=== PATIENT | female | born 1970 | race Caucasian/White ===

== ENCOUNTER → 2016-11-15 | Outpatient (CLI) | payer OTHER ==
[~2016-11-15] MED LIST: ACET-1256 PO; ASCO10003 PO; ASPI-391 PO; CALC500C3 PO; CALC500T83 PO; CHOL100010 PO; CHOL1CAP57 PO; CORACAP6 PO; ENOX30IN4 SQ; ESCI10TA17 PO; ESCI1TAB10 PO; HYDR-5688 PO; IMD/2 PO; METAMUCIL PO; MISCCAP80 PO; MULT-506 PO; RIZA10TA18 PO
== END | disposition home or self-care (01) ==
LOC: C.MAMM 12:33
PROVIDERS: ATTEND Nurse Practitioner
DX: C50.919 Malignant neoplasm of unspecified site of unspecified female breast (principal); M85.80 Other specified disorders of bone density and structure, unspecified site; Z90.722 Acquired absence of ovaries, bilateral; Z90.710 Acquired absence of both cervix and uterus; Z78.0 Asymptomatic menopausal state

== ENCOUNTER → 2017-05-01 | Outpatient (CLI) | payer OTHER ==
[~2017-05-01] MED LIST changes: +OPTIRAY 320 IV PRN
--- NOTE | 2017-05-01 12:56 | DIAGNOSTIC IMAGING REPORT ---
CHEST CT WITH CONTRAST CT DOSE: 467.24 mGy.cm HISTORY: Colon carcinoma COLON CA TECHNIQUE: Multiaxial CT images of the chest were performed following the intravenous administration of contrast. COMPARISON: 07/05/2016 FINDINGS: The lungs are clear. The mediastinal vascular structures are within normal limits. No mediastinal or hilar lymphadenopathy. No pleural effusion or pneumothorax. Limited views of the upper abdomen demonstrate a small cyst stable hypodense nodule left hepatic lobe. Components of fatty infiltration of liver are present. IMPRESSION: No significant abnormality identified within the chest. No change from the prior study Electronically signed by: Best Sarah M.D. 05/01/2017 12:55 PM Dictated Date/Time: 05/01/2017 12:50 PM
--- NOTE | 2017-05-01 13:03 | DIAGNOSTIC IMAGING REPORT ---
ABDOMEN AND PELVIS CT WITH IV AND ORAL CONTRAST CT DOSE: HISTORY: Colon carcinoma COLON CA TECHNIQUE: Multiaxial CT images of the abdomen and pelvis were performed following the use of intravenous and oral contrast. COMPARISON STUDY: 06/24/2016 FINDINGS: Lung bases remain clear. Stable fatty infiltration of liver. Stable hypodensity/cyst left hepatic lobe. Gallbladder is negative for distention. Kidneys enhance uniformly. Findings of polysplenia, intestinal malrotation, as well as an increased fecal load at this time within the sigmoid appears similar compared to the prior study. No significant adenopathy is present. No lytic or blastic process of the osseous structures. IMPRESSION: 1. Negative study of the abdomen and pelvis. 2. Incidental findings as discussed above. 3. Increased fecal load within the sigmoid 4. No evidence of metastatic disease Electronically signed by: Best Sarah M.D. 05/01/2017 1:02 PM Dictated Date/Time: 05/01/2017 12:56 PM
== END | disposition home or self-care (01) ==
LOC: C.CTS 11:37
PROVIDERS: ATTEND Internal Medicine Hematology & Oncology
DX: C18.4 Malignant neoplasm of transverse colon (principal)

== ENCOUNTER → 2017-05-06 | Outpatient (CLI) | payer OTHER ==
[~2017-05-06] MED LIST changes: +GADAVIST IV PRN; -OPTIRAY 320 IV PRN
--- NOTE | 2017-05-07 07:42 | MAMMOGRAPHY REPORT ---
BREAST MRI OF BOTH BREASTS : 05/06/2017 CLINICAL HISTORY: 46-year-old woman with a history of breast cancer status post bilateral mastectomy and implant reconstruction. She presents to assess implant integrity and continued surveillance stat us post breast cancer. COMPARISON: Comparison is made to exams dated: 05/09/2011 mammogram, 04/25/2010 mammogram - [facility], 04/21/2009, 04/08/2008, 04/08/2008, and 11/08/2015 breast MRI - [facility] enter. TECHNIQUE: Using a 1.5 Annie magnet and dedicated breast coil, multisequence axial images were obtain ed through the breasts. After uneventful IV administration of 8 mL of Gadavist, dynamic multiphase c ontrast-enhanced axial images, and sagittal postcontrast were obtained. Temporal subtraction axial i mages and 3-D MIP images are provided. Everything was then reviewed on a 3-D workstation, [employer]. Ad ditional multisequence axial and sagittal sequences were performed to assess implant integrity. FINDINGS: There is evidence of bilateral mastectomy and silicone implant reconstruction. The implant s are intact bilaterally without evidence of intracapsular or extracapsular rupture. There is suscep tibility artifact along the left chest wall, adjacent to the implant, likely secondary to remote surg eries. There is no focal skin thickening, abnormal enhancement or enhancing mass within the remainin g subcutaneous tissue surrounding the implants. No suspicious axillary or internal mammary lymphaden opathy is identified. 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 IMPRESSION: ACR BI-RADS CATEGORY 2: BENIGN Stable MRI including intact bilateral silicone implants. No MRI evidence of malignancy or suspicious lymphadenopathy. The patient will receive written notification of the results. Bella Camacho M.D. ay/:05/06/2017 21:33:56 Naphthalene Operator: data administrator, [facility] letter sent: Normal 1/2 BI-RADS Code: ACR BI-RADS Category 2: Benign
== END | disposition home or self-care (01) ==
LOC: C.MRI 12:00
PROVIDERS: ATTEND Internal Medicine Hematology & Oncology
DX: Z85.3 Personal history of malignant neoplasm of breast (principal)

== ENCOUNTER → 2017-06-18 | Outpatient (CLI) | payer OTHER ==
[~2017-06-18] MED LIST changes: -ACET-1256 PO; -ASCO10003 PO; -CALC500C3 PO; -CHOL1CAP57 PO; -CORACAP6 PO; -ENOX30IN4 SQ; -ESCI1TAB10 PO; -GADAVIST IV PRN; -METAMUCIL PO; -MISCCAP80 PO
[2017-06-18 17:42] LABS: BASO % 0.2 %; BASO ABS # 0.01 K/uL (0-0.2); COMPLETE YES; HEMATOCRIT 38.9 % (37-47); LYMPH % 42.1 %; LYMPH ABS # 1.89 K/uL (1.2-3.4); MEAN CELL VOLUME 87.6 fL (80-100); MEAN CORPUSCULAR HEMOGLOBIN 28.2 pg (25-34); MEAN CORPUSCULAR HGB CONC 32.1 g/dl (32-36); MEAN PLATELET VOLUME 9.6 fL (7.4-10.4); MONO % 7.1 %; NEUT % 48.6 %; PLATELET COUNT 203 K/uL (130-400); RED BLOOD COUNT 4.44 M/uL (4.2-5.4); WHITE BLOOD COUNT 4.49 K/uL (4.8-10.8)
[2017-06-18 17:58] LABS: ALT/SGPT 40 U/L (12-78); AST/SGOT 38 U/L (15-37); BLOOD UREA NITROGEN 14 mg/dl (7-18); BUN/CREATININE RATIO 18.1 (10-20); CALCIUM 9.4 mg/dl (8.5-10.1); CARBON DIOXIDE 31 mmol/L (21-32); CHLORIDE 102 mmol/L (98-107); CREATININE 0.78 mg/dl (0.60-1.20); GLUCOSE 95 mg/dl (70-99); POTASSIUM 3.7 mmol/L (3.5-5.1); SODIUM 137 mmol/L (136-145)
[2017-06-18 18:00] LABS: ALB/GLOB RATIO 1.3 (0.9-2); ALKALINE PHOSPHATASE 75 U/L (45-117)
== END | disposition home or self-care (01) ==
LOC: C.LABBFT 15:17
PROVIDERS: ATTEND Internal Medicine Hematology & Oncology
DX: C18.4 Malignant neoplasm of transverse colon (principal)

== ENCOUNTER → 2017-06-28 | Day surgery (SDC) | payer OTHER ==
[2017-06-13 12:49] VITALS: Ht 162.6 cm; Wt 52.3 kg
[~2017-06-28] VITALS: Ht 162.6 cm; Wt 52.3 kg
[~2017-06-28] MED LIST changes: +LIDOCAINE HCL 2% 2 ML VIAL (20MG/ML) ONE; +PROPOFOL IV EMULSION 10 MG/ML 20 ML VIAL IV ONE
[2017-06-28 13:24] VITALS: TEMP 36.6
--- NOTE | 2017-06-28 13:52 | Endo History and Physical ---
History & Physical Date of Service: Jun 28, 2017. Chief Complaint: Hx of colon cancer Referring Physician: Mackenzie History of Present Illness For flex sig Past Surgical History Hx Cardiac Surgery: No Hx Internal Defibrillator: No Hx Pacemaker: No Hx Abdominal Surgery: Yes (HYSTER) Hx of Implantable Prosthesis: No Hx Post-Op Nausea and Vomiting: No Hx Cancer Surgery: Yes (COLON RESECTION WITH APPY AND FINISHED HYSTER, BLT MASTECTOMY WITH IMPLANTS) Hx Thoracic Surgery: No Hx Orthopedic: No Hx Urinary Tract Surgery: No Family History Colon CA Social History Smoking Status: Never Smoker Hx Substance Use: No Hx Alcohol Use: Yes (OCCASIONAL WINE) Allergies Coded Allergies: Morphine (Verified Allergy, Unknown, NAUSEA HOT FLASHES, 06/28/17) Current Medications Reported Home Medications Medications Dose Route/Sig Max Daily Dose Days Date Category Excedrin Extra Strength (Rrbcihu-Ijdezmwweenjo-Lknuyzkf) 1 Tab Tab 1 Tab PO UD PRN 06/13/17 Reported Calcium 500 Mg Tab 1,000 Mg PO QAM 06/13/17 Reported Lexapro (Escitalopram Oxalate) 10 Mg Tab 10 Mg PO QAM 06/13/17 Reported Imodium (Loperamide HCl) 2 Mg Cap 2 Mg PO UD PRN 08/09/16 Reported Maxalt (Rizatriptan Benzoate) 10 Mg Tab 10 Mg PO UD PRN 03/24/13 Reported Multivitamin (Multivitamins) Tab 1 Tab PO QAM 07/09/08 Reported Vital Signs Weight (Kilograms): 52.27 Height (Feet): 5 Height (Inches): 4 Date Time Temp Pulse Resp B/P (MAP) Pulse Ox O2 Delivery O2 Flow Rate FiO2 06/28/17 13:24 36.6 74 18 101/60 (74) 98 Room Air Physical Exam General Appearance: WD/WN Respiratory/Chest: Respiratory effort: no dyspnea Abdomen: Bowel Sounds: pertinent finding (low transverse scar) Assessment and Plan hx colon cancer for flex sig
--- NOTE | 2017-06-28 14:10 | Discharge Instructions ---
Endoscopy Patient Instructions Date / Procedure(s) Performed Jun 28, 2017. Colonoscopy Allergy Information Coded Allergies: Morphine (Verified Allergy, Unknown, NAUSEA HOT FLASHES, 06/28/17) Discharge Date / Findings Jun 28, 2017. anastomotic erosion Medication Instructions Restart Stopped Medication(s): resume meds Reported Home Medications Medications Dose Route/Sig Max Daily Dose Days Date Category Excedrin Extra Strength (Ygcqkxw-Daebajxjxpwhw-Cqsbkzdn) 1 Tab Tab 1 Tab PO UD PRN 06/13/17 Reported Calcium 500 Mg Tab 1,000 Mg PO QAM 06/13/17 Reported Lexapro (Escitalopram Oxalate) 10 Mg Tab 10 Mg PO QAM 06/13/17 Reported Imodium (Loperamide HCl) 2 Mg Cap 2 Mg PO UD PRN 08/09/16 Reported Maxalt (Rizatriptan Benzoate) 10 Mg Tab 10 Mg PO UD PRN 03/24/13 Reported Multivitamin (Multivitamins) Tab 1 Tab PO QAM 07/09/08 Reported Provider Instructions Activity Restrictions - No exercising or heavy lifting for 24 hours. - Do not drink alcohol the day of the procedure. - Do not drive a car or operate machinery until the day after the procedure. - Do not make any important decisions or sign important papers in 24 hours after the procedure. Following Day: - Return to full activity which may include returning to work/school. Diet Start your diet with liquids and light foods (jello, soup, juice, toast). Then eat your usual diet if not nauseated. Treatment For Common After Affects For mild abdominal pain, bloating, or excessive gas: - Rest - Eat lightly - Lie on right side Follow-Up Information Follow-up with Mackenzie as scheduled Anesthesia Information What You Should Know You have had a procedure that required some medicine to reduce anxiety and discomfort. This treatment is called moderate sedation. After receiving the treatment, you may be sleepy, but you will be able to breathe on your own. The effects of the treatment may last for several hours. Follow these instructions along with Activity/Diet recommendations noted above: * Do NOT do anything where dizziness or clumsiness would be dangerous. * Rest quietly at home today, then you can be up and about tomorrow. * Have a responsible person stay with you the rest of today. * You may have had an I.V. today. If so, you may take the dressing off later today. Recommendations Call your doctor if: * Trouble breathing * Continuous vomiting for more than 24 hours * Temperature above 101 degrees * Severe abdominal pain or bloating * Pain not relieved by pain medicine ordered * There is increased drainage or redness from any incision * A large amount of rectal bleeding greater than 2-3 tablespoons. (If you had a polyp/s removed or have hemorrhoids, a small amount of blood - from the rectum is to be expected.) * You have any unanswered questions or concerns. IN THE EVENT OF A SERIOUS EMERGENCY, GO TO THE NEAREST EMERGENCY ROOM Your discharge instructions were prepared by provider Travis Simmons. Patient Instructions Signature Page Sofi Case Patient (or Guardian) Signature/Date: I have read and understand the instructions given to me by my caregivers. Caregiver/RN/Doctor Signature/Date: The above-named patient and/or guardian has received patient instructions on this date. + Original Patient Signature Page (only) stays with chart. Please make copy for patient.
--- NOTE | 2017-06-28 14:17 | GI REPORT ---
Procedure Date: 06/28/2017 1:31 PM Procedure: Colonoscopy Indications: Personal history of malignant neoplasm of the colon Medicines: Propofol total dose 170 mg IV, Lidocaine 40 mg IV Complications: No immediate complications. Estimated Blood Loss: Estimated blood loss: none. Procedure: Pre-Anesthesia Assessment: - Prior to the procedure, a History and Physical was performed, and patient medications, allergies and sensitivities were reviewed. The patient's tolerance of previous anesthesia was reviewed. - The risks and benefits of the procedure and the sedation options and risks were discussed with the patient. All questions were answered and informed consent was obtained. After I obtained informed consent, the scope was passed under direct vision. Throughout the procedure, the patient's blood pressure, pulse, and oxygen saturations were monitored continuously. The scope was introduced through the anus and advanced to the terminal ileum. The colonoscopy was performed without difficulty. The patient tolerated the procedure well. The quality of the bowel preparation was excellent. Findings: There was evidence of a prior end-to-side ileo-colonic anastomosis at 15 cm in the recto-sigmoid colon. This was patent and was characterized by erosion. The anastomosis was traversed. The colon (entire examined portion) appeared normal. Impression: - Patent end-to-side ileo-colonic anastomosis, characterized by erosion. - The entire examined colon is normal. - No specimens collected. Recommendation: - Discharge patient to home (ambulatory). - Continue present medications. - Repeat colonoscopy in 3 years for surveillance. - Return to primary care physician SIERRAN. Travis Simmons M.D. Travis Simmons MD 06/28/2017 2:16:30 PM This report has been signed electronically. Note Initiated On: 06/28/2017 1:31 PM I attest to the content of the Intraoperative Record and orders documented therein, exceptions below
[2017-06-28 14:37] VITALS: BP 97/65; PULSE 63; O2SAT 98
--- NOTE | 2017-06-28 15:07 | Anesthesiology Progress Note ---
Anesthesia Post Op Note Date & Time Jun 28, 2017 at 15:07 Vital Signs Pain Intensity: 0 Vital Signs Past 12 Hours Date Time Temp Pulse Resp B/P (MAP) Pulse Ox O2 Delivery O2 Flow Rate FiO2 06/28/17 14:37 63 16 97/65 (76) 98 Room Air 06/28/17 14:25 68 18 96/66 (76) 97 Room Air 06/28/17 14:15 58 18 94/55 (68) 98 Room Air 06/28/17 13:24 36.6 74 18 101/60 (74) 98 Room Air Notes Mental Status: alert / awake / arousable, participated in evaluation Pt Amnestic to Procedure: Yes Nausea / Vomiting: adequately controlled Pain: adequately controlled Airway Patency, RR, SpO2: stable & adequate BP & HR: stable & adequate Hydration State: stable & adequate Anesthetic Complications: no major complications apparent
== END | disposition home or self-care (01) ==
LOC: C.GI 13:03
PROVIDERS: ATTEND Internal Medicine Gastroenterology
DX: K91.89 Other postprocedural complications and disorders of digestive system (principal); Z85.038 Personal history of other malignant neoplasm of large intestine; Z85.3 Personal history of malignant neoplasm of breast; Z98.82 Breast implant status

== ENCOUNTER → 2017-07-23 | Day surgery (SDC) | payer OTHER ==
[2017-07-04 07:53] VITALS: Ht 162.6 cm; Wt 52.3 kg
[~2017-07-23] VITALS: Ht 162.6 cm; Wt 52.3 kg
[~2017-07-23] MED LIST changes: +ATROPINE SULFATE 0.1 MG/ML 5ML SYR IV PRN; +CEFAZOLIN 2000 MG/60 ML D5W IV SCH; +FENTANYL CITRATE INJ 50 MCG/1 ML 2 ML VIAL ONE; +HYDROCODONE/ACETAMOPHEN 5/325MG TAB PO PRN; +KETOROLAC TROMETHAMINE 30 MG/ML VIAL IV. PRN; +LACTATED RINGER'S 1000ML 1,000 ML IV SCH; +LIDOCAINE HCL 1% 20 ML VIAL ONE; +MIDAZOLAM HCL 1 MG/ML 2ML VIAL ONE; +ONDANSETRON INJ 2 MG/ML 2 ML VIAL IV PRN; +ONDANSETRON INJ 2 MG/ML 2 ML VIAL ONE; +SODIUM CHLORIDE 0.9% 1000ML 1,000 ML IV SCH
--- NOTE | 2017-07-23 06:50 | History & Physical Bridge - [place] ---
H&P Re-Evaluation Bridge Note: I have examined the patient, reviewed the History & Physical and in the interval since the performance of the History & Physical I have noted the following changes of clinical significance: No changes noted
--- NOTE | 2017-07-23 06:55 | Discharge Instructions-SurgCtr ---
Discharge Instructions Date of Service Jul 23, 2017. Visit Reason for Visit: Port Cath In Place, Hx Colon Ca; Hx Breast Ca Discharge Discharge Diagnosis / Problem: port in place Discharge Goals Goal(s): Decrease discomfort, Improve function, Improve disease control Medications Stopped Medications Name(s): Pt. stopped Excedrin x 1 wk.. Activity Recommendations Activity Limitations: as noted below (light activity for 2 weeks) Exercise/Sports Limitations: until after follow-up appointment May Resume Sexual Activity: when tolerated Shower/Bathe: keep incision dry (may shower over incision in 2 days) Driving or Machine Use: resume 1 day after discharge SPECIAL CARE INSTRUCTIONS: * Cover incisions and change daily for comfort/drainage. * Leave steri strips in place * May use ibuprofen for pain as tolerated. * Expect some swelling and bruising. Call your doctor if: * Temperature above 101 degrees * Pain not relieved by pain medicine ordered * There is increased drainage or redness from any incision * You have any unanswered questions or concerns [phone]. FOLLOW UP VISIT: If not already scheduled, please call the office for a follow-up visit. for 2 weeks- check up, and suture knot removal OFFICE PHONE NUMBER: Dr. Snyder Office Anesthesia . Post Anesthesia Instructions: If you have had General Anesthesia or IV Sedation: * Do not drive today. * Resume driving when surgeon permits. * Do not make important decisions or sign legal documents today. * Call surgeon for: 1. Temperature elevations greater than 101 degrees F. 2. Uncontrollable pain. 3. Excessive bleeding. 4. Persistent nausea and vomiting. 5. Medication intolerance (nausea, vomiting or rash). * For nausea and vomiting use only clear liquids such as: tea, soda, bouillon until nausea subsides, then gradually increase diet as tolerated. * If you have any concerns or questions, call your surgeon's office. If physician is unavailable and it is an emergency, call 911 or go to the nearest emergency room. . Diet Recommendations Home Diet: resume previous diet Pending Studies Studies pending at discharge: no Medical Emergencies . Who to Call and When: Medical Emergencies: If at any time you feel your situation is an emergency, please call 911 immediately. . Non-Emergent Contact Non-Emergency issues call your: Primary Care Provider, Surgeon . . "Provider Documentation" section prepared by Inocencio Snyder. .
--- NOTE | 2017-07-23 07:35 | [facility] Operative Report ---
Operative Report Operative Date Jul 23, 2017. Pre-Operative Diagnosis Port Catheter in PLace, History of Colon Cancer, History of Breast Cancer Post-Operative Diagnosis same Procedure(s) Performed Left Chest Wall Infusaport Removal Surgeon Dr. Zelda Snyder Shaft Tender Surgeon(s) 0 Estimated Blood Loss 5cc Findings port Specimens A. A-Port Anesthesia local/ sedation Complication(s) None Disposition Recovery Room / PACU I attest to the content of the Intraoperative Record and any orders documented therein. Any exceptions are noted below.
[2017-07-23 07:39] VITALS: TEMP 36.7
--- NOTE | 2017-07-23 07:47 | OPERATIVE REPORT ---
DATE OF OPERATION: 07/23/2017 NAME OF OPERATION: Port removal. PREOPERATIVE DIAGNOSIS: Infusaport. POSTOPERATIVE DIAGNOSIS: Same. STAFF SURGEON: Dr. Snyder. ANESTHESIA: 1% plain lidocaine with sedation. PROCEDURE: The patient was brought in the operating room and placed on the operating table in supine position. Her left chest was prepped and draped in usual fashion. 1% plain lidocaine was used to anesthetize the skin and subcutaneous tissue. The patient had a scar which was excised and then dissection carried down to the port. Port was dissected away from the capsule and then the catheter removed with the port and the tunnel oversewn using 2-0 chromic catgut suture. The deep tissue was reapproximated using 2-0 plain catgut suture then the skin reapproximated using subcuticular 5-0 Monocryl with the knots left on the ends outside the skin. Steri-Strips were applied. Dressing applied and patient transferred to recovery room in stable condition. I attest to the content of the Intraoperative Record and any orders documented therein. Any exception s are noted below.
--- NOTE | 2017-07-23 07:57 | Anesthesia Progress Nt - [facility] ---
Anesthesia Post Op Note Date & Time Jul 23, 2017 at 07:57 Vital Signs Pain Intensity: 0 Vital Signs Past 12 Hours Date Time Temp Pulse Resp B/P (MAP) Pulse Ox O2 Delivery O2 Flow Rate FiO2 07/23/17 07:39 36.7 57 20 106/69 (81) 99 Room Air 07/23/17 06:37 36.3 75 16 101/67 (78) 96 Room Air Notes Mental Status: alert / awake / arousable, participated in evaluation Pt Amnestic to Procedure: Yes Nausea / Vomiting: adequately controlled Pain: adequately controlled Airway Patency, RR, SpO2: stable & adequate BP & HR: stable & adequate Hydration State: stable & adequate Anesthetic Complications: no major complications apparent
[2017-07-23 07:58] VITALS: BP 102/65; PULSE 61; O2SAT 100
== END | disposition home or self-care (01) ==
LOC: X.SURG 06:19
PROVIDERS: ATTEND Surgery
DX: Z45.2 Encounter for adjustment and management of vascular access device (principal); Z85.3 Personal history of malignant neoplasm of breast; Z85.038 Personal history of other malignant neoplasm of large intestine; Z92.21 Personal history of antineoplastic chemotherapy; F32.9 Major depressive disorder, single episode, unspecified; Z79.899 Other long term (current) drug therapy

== ENCOUNTER → 2017-09-17 | Outpatient (CLI) | payer OTHER ==
[~2017-09-17] MED LIST changes: -ATROPINE SULFATE 0.1 MG/ML 5ML SYR IV PRN; -CEFAZOLIN 2000 MG/60 ML D5W IV SCH; -FENTANYL CITRATE INJ 50 MCG/1 ML 2 ML VIAL ONE; -HYDROCODONE/ACETAMOPHEN 5/325MG TAB PO PRN; -KETOROLAC TROMETHAMINE 30 MG/ML VIAL IV. PRN; -LACTATED RINGER'S 1000ML 1,000 ML IV SCH; -LIDOCAINE HCL 1% 20 ML VIAL ONE; -LIDOCAINE HCL 2% 2 ML VIAL (20MG/ML) ONE; -MIDAZOLAM HCL 1 MG/ML 2ML VIAL ONE; -ONDANSETRON INJ 2 MG/ML 2 ML VIAL IV PRN; -ONDANSETRON INJ 2 MG/ML 2 ML VIAL ONE; -PROPOFOL IV EMULSION 10 MG/ML 20 ML VIAL IV ONE; -SODIUM CHLORIDE 0.9% 1000ML 1,000 ML IV SCH
[2017-09-17 12:11] LABS: BASO % 0.4 %; BASO ABS # 0.02 K/uL (0-0.2); COMPLETE YES; EOS % 1.9 %; HEMATOCRIT 37.8 % (37-47); IG% 0.2 %; LYMPH % 33.7 %; LYMPH ABS # 1.76 K/uL (1.2-3.4); MEAN CELL VOLUME 86.5 fL (80-100); MEAN CORPUSCULAR HEMOGLOBIN 28.6 pg (25-34); MEAN CORPUSCULAR HGB CONC 33.1 g/dl (32-36); MEAN PLATELET VOLUME 9.4 fL (7.4-10.4); MONO % 7.8 %; PLATELET COUNT 176 K/uL (130-400); RED BLOOD COUNT 4.37 M/uL (4.2-5.4); WHITE BLOOD COUNT 5.23 K/uL (4.8-10.8)
[2017-09-17 12:53] LABS: ALB/GLOB RATIO 1.3 (0.9-2); ALKALINE PHOSPHATASE 75 U/L (45-117); ALT/SGPT 27 U/L (12-78); AST/SGOT 29 U/L (15-37); BLOOD UREA NITROGEN 12 mg/dl (7-18); BUN/CREATININE RATIO 16.5 (10-20); CALCIUM 9.9 mg/dl (8.5-10.1); CARBON DIOXIDE 31 mmol/L (21-32); CHLORIDE 101 mmol/L (98-107); CREATININE 0.72 mg/dl (0.60-1.20); GLUCOSE 85 mg/dl (70-99); POTASSIUM 3.9 mmol/L (3.5-5.1); SODIUM 134 mmol/L (136-145)
== END | disposition home or self-care (01) ==
LOC: C.LABBFT 10:58
PROVIDERS: ATTEND Internal Medicine Hematology & Oncology
DX: C18.4 Malignant neoplasm of transverse colon (principal)

== ENCOUNTER → 2017-09-23 | Outpatient (CLI) | payer OTHER | END | disposition home or self-care (01) | LOC: C.LABBFT 15:42 | PROVIDERS: ATTEND Internal Medicine Hematology & Oncology | DX: C18.4 Malignant neoplasm of transverse colon (principal) ==

== ENCOUNTER → 2018-01-21 | Outpatient (CLI) | payer OTHER ==
[2018-01-21 16:38] LABS: BASO % 0.3 %; BASO ABS # 0.02 K/uL (0-0.2); EOS ABS # 0.06 K/uL (0-0.5); HEMATOCRIT 39.9 % (37-47); HEMOGLOBIN 13.3 g/dL (12.0-16.0); IG# 0.02 K/uL (0.00-0.02); LYMPH % 37.2 %; LYMPH ABS # 2.23 K/uL (1.2-3.4); MEAN CELL VOLUME 86.4 fL (80-100); MEAN CORPUSCULAR HEMOGLOBIN 28.8 pg (25-34); MEAN CORPUSCULAR HGB CONC 33.3 g/dl (32-36); MEAN PLATELET VOLUME 9.6 fL (7.4-10.4); MONO % 6.5 %; MONO ABS # 0.39 K/uL (0.11-0.59); NEUT % 54.7 %; NEUT ABS # 3.28 K/uL (1.4-6.5); PLATELET COUNT 222 K/uL (130-400); RED CELL DISTRIBUTION WIDTH CV 14.3 % (11.5-14.5); RED CELL DISTRIBUTION WIDTH SD 44.8 fL (36.4-46.3)
[2018-01-21 16:52] LABS: ALBUMIN 4.3 gm/dl (3.4-5.0); ALKALINE PHOSPHATASE 88 U/L (45-117); ALT/SGPT 40 U/L (12-78); AST/SGOT 36 U/L (15-37); BLOOD UREA NITROGEN 12 mg/dl (7-18); CALCIUM 9.8 mg/dl (8.5-10.1); CARBON DIOXIDE 29 mmol/L (21-32); CREATININE 0.82 mg/dl (0.60-1.20); GLUCOSE 86 mg/dl (70-99); POTASSIUM 3.8 mmol/L (3.5-5.1); SODIUM 135 mmol/L (136-145)
== END | disposition home or self-care (01) ==
LOC: C.LABBFT 12:54
PROVIDERS: ATTEND Internal Medicine Hematology & Oncology
DX: C18.4 Malignant neoplasm of transverse colon (principal)

== ENCOUNTER → 2018-05-16 | Outpatient (CLI) | payer OTHER ==
[~2018-05-16] MED LIST changes: -HYDR-5688 PO
[2018-05-16 17:48] LABS: BASO % 0.4 %; BASO ABS # 0.02 K/uL (0-0.2); EOS ABS # 0.09 K/uL (0-0.5); HEMATOCRIT 41.3 % (37-47); HEMOGLOBIN 13.7 g/dL (12.0-16.0); LYMPH % 40.1 %; LYMPH ABS # 1.85 K/uL (1.2-3.4); MEAN CELL VOLUME 86.6 fL (80-100); MEAN CORPUSCULAR HEMOGLOBIN 28.7 pg (25-34); MEAN CORPUSCULAR HGB CONC 33.2 g/dl (32-36); MEAN PLATELET VOLUME 10.1 fL (7.4-10.4); MONO % 8.5 %; MONO ABS # 0.39 K/uL (0.11-0.59); NEUT ABS # 2.26 K/uL (1.4-6.5); PLATELET COUNT 226 K/uL (130-400); RED CELL DISTRIBUTION WIDTH CV 13.8 % (11.5-14.5); RED CELL DISTRIBUTION WIDTH SD 43.5 fL (36.4-46.3); WHITE BLOOD COUNT 4.61 K/uL (4.8-10.8)
[2018-05-16 17:57] LABS: ALBUMIN 4.3 gm/dl (3.4-5.0); ALKALINE PHOSPHATASE 80 U/L (45-117); ALT/SGPT 58 U/L (12-78); AST/SGOT 41 U/L (15-37); BLOOD UREA NITROGEN 12 mg/dl (7-18); CARBON DIOXIDE 26 mmol/L (21-32); CREATININE 0.78 mg/dl (0.60-1.20); GLUCOSE 86 mg/dl (70-99); POTASSIUM 4.1 mmol/L (3.5-5.1); SODIUM 137 mmol/L (136-145); TOTAL PROTEIN 7.3 gm/dl (6.4-8.2)
== END | disposition home or self-care (01) ==
LOC: C.LABBFT 13:21
PROVIDERS: ATTEND Internal Medicine Hematology & Oncology
DX: Z13.6 Encounter for screening for cardiovascular disorders (principal); C18.4 Malignant neoplasm of transverse colon; R42 Dizziness and giddiness

== ENCOUNTER → 2018-06-04 | Outpatient (CLI) | payer OTHER ==
[~2018-06-04] MED LIST changes: +GADAVIST IV PRN
--- NOTE | 2018-06-04 10:11 | DIAGNOSTIC IMAGING REPORT ---
Brain MRI WITH AND WITHOUT CONTRAST HISTORY: R42 Postural dizziness with presyncope TECHNIQUE: Multiplanar multisequence MRI of the brain was performed both before and after the intravenous administration of contrast. COMPARISON STUDY: None. FINDINGS: There are no areas of restricted diffusion to suggest acute infarction. The midline structures are intact. The paranasal sinuses are clear. The mastoid air cells are clear. The ventricles and sulci are within normal limits for age. There is no mass, hematoma, midline shift. The major vascular flow-voids at the skull base are well maintained. Postcontrast sequences show no areas of abnormal enhancement. A 2.7 x 2.7 cm cyst posterior to the midline of the cerebellum. This likely represents an arachnoid cyst. There are total of 2 punctate foci within the white matter of the right frontal lobe and left parietal lobe. These are of doubtful clinical significance. IMPRESSION: No acute intracranial abnormality. Electronically signed by: Uche Kwon M.D. 06/04/2018 10:10 AM Dictated Date/Time: 06/04/2018 9:47 AM
== END | disposition home or self-care (01) ==
LOC: C.MRI 08:47
PROVIDERS: ATTEND Internal Medicine
DX: R42 Dizziness and giddiness (principal)

== ENCOUNTER → 2018-06-05 | Outpatient (CLI) | payer OTHER ==
--- NOTE | 2018-06-06 15:42 | MAMMOGRAPHY REPORT ---
BREAST MRI OF BOTH BREASTS: 06/05/2018 CLINICAL HISTORY: History of breast cancer status post bilateral mastectomy and implant reconstructio n. The patient reported to the medical technologist generalist that she has a left nipple lump as well as left breas t tenderness. COMPARISON: Comparison is made to exams dated: 05/06/2017 breast MRI and 11/08/2015 breast MRI - [facility]. Technique: The patient was placed prone in a dedicated breast imaging coil. Precontrast axial T1-alex ghted, axial T2-weighted fat saturation, and axial T1-weighted fat saturation images were obtained. Additionally, axial and sagittal T2 STIR water suppression sequences were also obtained. After the a dministration of 5 mL of Gadavist IV contrast, sequential T1-weighted fat saturation images were obta ined. Subtraction images were obtained of the dynamic contrast enhanced sequences, and 3-D reformati ons were performed. The [employer] software was used for kinetic analysis. Findings: There are stable postsurgical changes from bilateral mastectomy and implant reconstruction. The sili cone implants are intact bilaterally without evidence of intracapsular or extracapsular rupture. The re are no suspicious enhancing masses or areas of abnormal non-mass enhancement in bilateral reconstr ucted breasts. There is no evidence of axillary adenopathy. Visualized portions of the extramammary soft tissues ar e grossly unremarkable. IMPRESSION: ACR BI-RADS CATEGORY 2: BENIGN No MRI evidence of malignancy in either reconstructed breast. Recommend clinical follow-up for the r eported left nipple lump; if clinically suspicious then surgical biopsy should be performed. Also re commend clinical follow-up for reported left breast tenderness. Jeri Mack M.D. ah/:06/05/2018 16:02:26 Mammographer: road passenger firer, [facility] BI-RADS Code: ACR BI-RADS Category 2: Benign
== END | disposition home or self-care (01) ==
LOC: C.MRI 10:58
PROVIDERS: ATTEND Internal Medicine
DX: C50.919 Malignant neoplasm of unspecified site of unspecified female breast (principal)